=== PATIENT | male | born 1970 | race Hispanic/Latino ===

== ENCOUNTER 2019-11-10 13:55 | Emergency (ER) | payer BC ==
[2019-11-10 14:11] VITALS: BP 139/99
[2019-11-10] MEDS ORDERED: MORPHINE 4 MG/1 ML INJ IV ONE (15:02)
[2019-11-10] MEDS ORDERED: ONDANSETRON 4 MG/2 ML INJ IV ONE (15:02)
[2019-11-10] MEDS ORDERED: SODIUM CHLORIDE 0.9% 1000 ML 1,000 ML IV ONE (15:02)
[2019-11-10 15:18] LABS: Basophils # (Auto) 0.1 K/mm3 (0.0-0.1); Eosinophils # (Auto) 0.2 K/mm3 (0.0-0.4); Eosinophils % (Auto) 2.1 % (0.0-4.3); Hematocrit 38.6 % (35.5-45.6); Hemoglobin 13.4 gm/dl (11.8-15.2); Lymphocytes % (Auto) 27.7 % (13.4-35.0); Mean Corpuscular HGB Conc 35 % (32-34); Mean Corpuscular Volume 118 fl (84-94); Monocytes # (Auto) 0.6 K/mm3 (0.0-0.8); Monocytes % (Auto) 7.7 % (0.0-7.3); Platelet Count 382 K/mm3 (140-440); Red Blood Count 3.26 M/mm3 (3.65-5.03); Red Cell Distribution Width 16.1 % (13.2-15.2)
[2019-11-10 15:41] LABS: Alanine Aminotransferase 87 units/L (7-56); Albumin 3.8 g/dL (3.9-5); BUN/Creatinine Ratio 6; Blood Urea Nitrogen 5 mg/dL (9-20); Calcium 8.8 mg/dL (8.4-10.2); Hemolysis Index 52
--- NOTE | 2019-11-10 16:49 | Cat Scan Report ---
CT ABDOMEN AND PELVIS WITH CONTRAST INDICATION: abd pain w/ n/v CONTRAST: 100 cc Omnipaque 300 IV COMPARISON: None available. All CT scans at this location are performed using CT dose reduction for ALARA by means of automated e xposure control. FINDINGS: Lung bases are clear. No pneumoperitoneum is seen. No significant abdominal wall herniation is noted. Liver shows prominent fatty infiltration and is enlarged with a length of 19.5 cm. No foca l masses are obvious. Spleen appears within normal limits. Gallbladder is slightly distended but show s no wall thickening or obvious calculi. No biliary dilatation is seen. I see no abnormalities of the pancreas, adrenals, or right kidney. Left kidney shows a staghorn calculus in the lower pole measuri ng 16 mm in length but no obstructive changes are seen. Ureters and bladder show no significant abnor malities. Prostate shows calcifications but is not enlarged. No seminal vesicle abnormalities are see n. No lymphadenopathy is noted. No free fluid is seen. Atherosclerotic changes are noted. The left common iliac artery shows moderate atherosclerotic change . The left external iliac artery appears to show significant atherosclerotic change as well as mural thrombus. Flow is seen to the distal most portion of this artery then no obvious flow is identified u ntil the mid portion of the left common femoral artery which then is well opacified as are visualized portions of the deep and superficial femoral arteries on the left. There appear to be several small collaterals in the left inguinal area. Atherosclerotic changes are also seen in the right common maria alejandra c and external iliac arteries but flow is seen well distally. No evidence of bowel obstruction is noted. Appendix appears within normal limits. The right colon and distal most portions of the ileum appear to show mild wall edema. I do not see surrounding inflammat ion. No obvious bowel wall enhancement is identified. No other abnormalities seen in this area. IMPRESSION: 1. Findings in the right colon and distal ileum suggest colitis and distal ileitis but I do not see o bvious complication. Clinical correlation is suggested. 2. Apparent high degree stenosis or obstruction of the extreme distal left external iliac artery with collateral reconstitution and good flow seen distally. 3. Prominent fatty infiltration of the liver with mild hepatomegaly 4. Staghorn calculus in the left kidney without obstructive change seen Signer Name: Eric Loya MD Signed: 11/10/2019 4:45 PM Workstation Name: [id number]
[2019-11-10] MEDS ORDERED: PIPERACIL/TAZOBACTA 4.5/NS 100 4.5 GM/100 ML VIAL IV ONE (16:55)
--- NOTE | 2019-11-10 17:39 | Emergency Department Report ---
ED Abdominal Pain HPI - General Chief Complaint: Abdominal Pain Stated Complaint: STOMACH PAINS, COUGHING, WHEEZING Time Seen by Provider: 11/10/19 15:02 Source: patient Mode of arrival: Ambulatory Limitations: No Limitations - History of Present Illness Initial Comments: This is a 49-year-old male nontoxic, well nourished in appearance, no acute signs of distress presents to the ED with c/o of intermittent nausea and vomiting and abdominal pain 3 weeks. Patient describes vomiting as food content and yellow gastric acid. Patient describes abdominal pain as cramping and aching with level of 8/10 diffuse. Patient denies chest pain, short of robert ath, fever, hemoptysis, blood in stool, chills, headache, stiff neck, numbness or tingling. Patient denies any diarrhea or constipation. Denies any blood in stool. Patient denies any recent travels. Patient stated allergies to bupropion. HX of ETOH abuse but has not been drinking alcohol in 2 years. MD Complaint: abdominal pain -: week(s) (3) Location: diffuse Radiation: none Migration to: no migration Severity: mild Severity scale (0 -10): 3 Quality: cramping, aching Consistency: intermittent Improves With: nothing Worsens With: nothing Associated Symptoms: nausea, vomiting. denies: diarrhea, fever, chills, constipation, dysuria, hematemesis, hematochezia, melena, hematuria, anorexia, syncope - Related Data Previous Rx's Medication Instructions Recorded Last Taken Type Acetaminophen/Codeine [Tylenol 1 tab PO Q6H PRN #12 tab 11/10/19 Unknown Rx /Codeine # 3 tab] Ciprofloxacin HCl [Ciprofloxacin 500 mg PO Q12HR #14 tab 11/10/19 Unknown Rx TAB] Ondansetron [Zofran Odt] 4 mg PO Q8HR PRN #12 tab.rapdis 11/10/19 Unknown Rx metroNIDAZOLE [Flagyl] 500 mg PO Q12HR #14 tab 11/10/19 Unknown Rx Allergies Allergy/AdvReac Type Severity Reaction Status Date / Time bupropion [From Wellbutrin] Allergy Hives Verified 11/10/19 14:07 ED Review of Systems ROS: Stated complaint: STOMACH PAINS, COUGHING, WHEEZING Other details as noted in HPI Constitutional: denies: chills, fever Eyes: denies: eye pain, eye discharge, vision change ENT: denies: ear pain, throat pain Respiratory: denies: cough, shortness of breath, wheezing Cardiovascular: denies: chest pain, palpitations Endocrine: no symptoms reported Gastrointestinal: abdominal pain, nausea, vomiting. denies: diarrhea Genitourinary: denies: urgency, dysuria Musculoskeletal: denies: back pain, joint swelling, arthralgia Skin: denies: rash, lesions Neurological: denies: headache, weakness, paresthesias Psychiatric: denies: anxiety, depression Hematological/Lymphatic: denies: easy bleeding, easy bruising ED Past Medical Hx - Past Medical History Hx Hypertension: Yes Hx COPD: Yes - Surgical History Additional Surgical History: STENT IN KIDNEYS FOR KIDNEY STIONE - Social History Smoking Status: Current Every Day Smoker Substance Use Type: None - Medications Home Medications: Home Medications Medication Instructions Recorded Confirmed Last Taken Type Acetaminophen/Codeine [Tylenol 1 tab PO Q6H PRN #12 tab 11/10/19 Unknown Rx /Codeine # 3 tab] Ciprofloxacin HCl [Ciprofloxacin 500 mg PO Q12HR #14 tab 11/10/19 Unknown Rx TAB] Ondansetron [Zofran Odt] 4 mg PO Q8HR PRN #12 tab.rapdis 11/10/19 Unknown Rx metroNIDAZOLE [Flagyl] 500 mg PO Q12HR #14 tab 11/10/19 Unknown Rx ED Physical Exam - General Limitations: No Limitations General appearance: alert, in no apparent distress - Head Head exam: Present: atraumatic, normocephalic - Eye Eye exam: Present: normal appearance - Neck Neck exam: Present: normal inspection, full ROM. Absent: tenderness, meningismus, lymphadenopathy - Respiratory Respiratory exam: Present: normal lung sounds bilaterally. Absent: respiratory distress, wheezes, rales, rhonchi, stridor, chest wall tenderness, accessory muscle use, decreased breath sounds, prolonged expiratory - Cardiovascular Cardiovascular Exam: Present: regular rate, normal rhythm, normal heart sounds. Absent: irregular rhythm, systolic murmur, diastolic murmur, rubs, gallop - GI/Abdominal GI/Abdominal exam: Present: soft, tenderness (diffuse), normal bowel sounds. Absent: distended, guarding, rebound, rigid, diminished bowel sounds - Extremities Exam Extremities exam: Present: normal inspection, full ROM - Back Exam Back exam: Present: normal inspection, full ROM. Absent: tenderness, CVA tenderness (R), CVA tenderness (L), muscle spasm, paraspinal tenderness, vertebral tenderness, rash noted - Neurological Exam Neurological exam: Present: alert, oriented X3, normal gait - Psychiatric Psychiatric exam: Present: normal affect, normal mood - Skin Skin exam: Present: warm, dry, intact, normal color. Absent: rash ED Course Vital Signs 11/10/19 14:10 Temperature 97.9 F Pulse Rate 97 H Respiratory 20 Rate Blood Pressure 139/99 O2 Sat by Pulse 99 Oximetry - Reevaluation(s) Reevaluation #1: 11/10/19 17:38 Patient is speaking in full sentences with no signs of distress noted. - Consultations Consultation #1: 11/10/19 17:38 Patient has been consulted with Dr. Queen and Dr. Neff (phd internship) about patient history, physical exam, and labs/CT results and agrees for discharge with follow-up. ED Medical Decision Making - Lab Data Result diagrams: 11/10/19 15:06 11/10/19 15:06 - Medical Decision Making This is a 49-year-old male that presents with colitis and n/v. Patient is stabl e and was examined by me. There is no abdominal tenderness. Patient was consulted with Dr. Castro and phd internship. Negative signs of symptoms of appendicitis. Labs obtained. UA obtained. CT of abdomen obtained and dictated by the radiologist. Patient is notified of the report with no questions noted by the patient. Vital signs are stable prior to discharge. Patient received medical treatment in the ED which patient stated symptoms has resovled and subsided. Patient also received Zosyn IV in the ER. Was instructed note to operate any machinery due to possible drowsiness and stated someone will drive the patient home. A by mouth challenge has been obtained and patient tolerated well with no nausea vomiting. Patient was notified of strict precatuions of appendictis symptoms and to return to the ED if symptoms occurs as soon as possible. Patient was also instructed to Follow-up with a primary care doctor in 3-5 days or if symptoms worsen and continue return to emergency room as soon as possible. At time of discharge, the patient does not seem toxic or ill in appearance. No acute signs of distress noted. Patient agrees to discharge treatment plan of care. No further questions noted by the patient. Critical care attestation.: If time is entered above; I have spent that time in minutes in the direct care of this critically ill patient, excluding procedure time. ED Disposition Clinical Impression: Colitis, Ileitis Nausea & vomiting Qualifiers: Vomiting type: unspecified Vomiting Intractability: non-intractable Qualified Code(s): R11.2 - Nausea with vomiting, unspecified Disposition: -01 TO HOME OR SELFCARE Is pt being admited?: No Does the pt Need Aspirin: No Condition: Stable Instructions: Acute Nausea and Vomiting (ED), Infectious Colitis (ED) Additional Instructions: Follow-up with a phd internship doctor in 2 days or if symptoms worsen and continue return to emergency room as soon as possible. Prescriptions: Ciprofloxacin HCl [Ciprofloxacin TAB] 500 mg PO Q12HR #14 tab metroNIDAZOLE [Flagyl] 500 mg PO Q12HR #14 tab Acetaminophen/Codeine [Tylenol /Codeine # 3 tab] 1 tab PO Q6H PRN #12 tab PRN Reason: Pain , Severe (7-10) Ondansetron [Zofran Odt] 4 mg PO Q8HR PRN #12 tab.rapdis PRN Reason: Nausea Referrals: BUZZ KESSLER MD [Primary Care Provider] - 3-5 Days PRIMARY CARE, [Referring] - 3-5 Days NATHALIE NEFF MD [Staff Physician] - 11/11/19 Forms: Work/School Release Form(ED)
== END 2019-11-10 18:48 | disposition home or self-care (01) ==
LOC: ED 13:55
DX: K52.9 Noninfective gastroenteritis and colitis, unspecified (principal); R11.2 Nausea with vomiting, unspecified; I10 Essential (primary) hypertension; J44.9 Chronic obstructive pulmonary disease, unspecified; F17.200 Nicotine dependence, unspecified, uncomplicated; Z95.5 Presence of coronary angioplasty implant and graft; Z79.899 Other long term (current) drug therapy; Z88.8 Allergy status to other drugs, medicaments and biological substances
CPT/HCPCS: 36415; 74177; 80053; 83690; 85025; 96361; 96365; 96375; 99284; J2270; J2405; J2543; J7030; Q9967

== ENCOUNTER 2019-12-09 16:03 | Emergency (ER) | payer BC ==
[2019-12-09 17:15] LABS: Basophils % (Auto) 0.8 % (0.0-1.8); Eosinophils % (Auto) 0.7 % (0.0-4.3); Lymphocytes % (Auto) 21.9 % (13.4-35.0); Monocytes % (Auto) 7.1 % (0.0-7.3)
[2019-12-09] MEDS ORDERED: ONDANSETRON 4 MG/2 ML INJ IV ONE (17:21)
[2019-12-09] MEDS ORDERED: SODIUM CHLORIDE 0.9% 1000 ML 1,000 ML IV ONE (17:21)
[2019-12-09] MEDS ORDERED: MORPHINE 2 MG/1 ML INJ IV ONE (17:21)
--- NOTE | 2019-12-09 17:22 | Emergency Department Report ---
ED N/V/D HPI - General Chief complaint: Abdominal Pain Stated complaint: STOMACH PAIN, DIRRHEA Time Seen by Provider: 12/09/19 17:08 Source: patient Mode of arrival: Ambulatory Limitations: No Limitations - History of Present Illness Initial comments: 49-year-old male presents to the ER today complaining of abdominal pain and diarrhea. Patient states that his symptoms started 4 days ago. Patient states that his symptoms initially started of mild but has been getting worse. He states on average she has been having at least 10 episodes of diarrhea per day. He states that he has noticed mucousy yellow slimy discharge with the diarrhea. He reports intermittent nausea, as well as decreased appetite, and increased flatulence and burping. He denies any fever, chills or UTI symptoms or melena or hematochezia. Patient states that he had similar episode back in October. He was seen here and diagnosed with ileitis/colitis and was prescribed metronidazole and ciprofloxacin. Patient states that he did complete both antibiotics and he did have resolution of his symptoms but it started again 4 days ago. He denies any recent travel, he denies any recent bad food intake, he denies any ill contacts. He states that he did follow-up with Dr. Curry who recommended that he follows up with the GI specialist. He states that he has an appointment December 18 with GI but he states this is a phone consult. MD complaint: diarrhea, abdominal pain -: Sudden, days(s) (4) Description of Diarrhea: water, mucous Associated Abdominal Pain: Yes Location: diffuse Radiation: none Severity: moderate Worsens with: none Context: recent anitbiotic use Associated Symptoms: loss of appetite, nausea/vomiting - Related Data Previous Rx's Medication Instructions Recorded Last Taken Type Acetaminophen/Codeine [Tylenol 1 tab PO Q6H PRN #12 tab 12/09/19 Unknown Rx /Codeine # 3 tab] Ciprofloxacin HCl [Ciprofloxacin 500 mg PO Q12HR #14 tab 12/09/19 Unknown Rx TAB] Ondansetron [Zofran ODT TAB] 4 mg PO Q8HR PRN #12 tab.rapdis 12/09/19 Unknown Rx metroNIDAZOLE [Flagyl TAB] 500 mg PO Q12HR #14 tab 12/09/19 Unknown Rx Allergies Allergy/AdvReac Type Severity Reaction Status Date / Time bupropion [From Wellbutrin] Allergy Hives Verified 12/09/19 16:18 ED Review of Systems ROS: Stated complaint: STOMACH PAIN, DIRRHEA Other details as noted in HPI Comment: All other systems reviewed and negative Constitutional: denies: chills, fever Respiratory: denies: cough, shortness of breath, wheezing Cardiovascular: denies: chest pain, palpitations Gastrointestinal: abdominal pain, nausea, diarrhea. denies: hematemesis, melena, hematochezia Genitourinary: denies: urgency, dysuria Skin: denies: rash, lesions Neurological: denies: headache, weakness, paresthesias Psychiatric: denies: anxiety, depression Hematological/Lymphatic: denies: easy bleeding, easy bruising ED Past Medical Hx - Past Medical History Hx Hypertension: Yes Hx COPD: Yes Additional medical history: COLITIS - Surgical History Additional Surgical History: STENT IN KIDNEYS FOR KIDNEY STIONE - Social History Smoking Status: Current Every Day Smoker Substance Use Type: Alcohol - Medications Home Medications: Home Medications Medication Instructions Recorded Confirmed Last Taken Type Acetaminophen/Codeine [Tylenol 1 tab PO Q6H PRN #12 tab 12/09/19 Unknown Rx /Codeine # 3 tab] Ciprofloxacin HCl [Ciprofloxacin 500 mg PO Q12HR #14 tab 12/09/19 Unknown Rx TAB] Ondansetron [Zofran ODT TAB] 4 mg PO Q8HR PRN #12 tab.rapdis 12/09/19 Unknown Rx metroNIDAZOLE [Flagyl TAB] 500 mg PO Q12HR #14 tab 12/09/19 Unknown Rx ED Physical Exam - General Limitations: No Limitations General appearance: alert, in no apparent distress - ENT ENT exam: Present: normal exam, mucous membranes moist - Neck Neck exam: Present: normal inspection. Absent: meningismus - Respiratory Respiratory exam: Present: normal lung sounds bilaterally. Absent: respiratory distress - Cardiovascular Cardiovascular Exam: Present: regular rate, tachycardia - GI/Abdominal GI/Abdominal exam: Present: distended (Mild), tenderness (Diffuse but more so in the epigastric and right lower quadrant area with some mild guarding), rigid. Absent: rebound - Back Exam Back exam: Present: normal inspection - Neurological Exam Neurological exam: Present: alert, oriented X3, CN II-XII intact - Skin Skin exam: Present: intact ED Course Vital Signs 12/09/19 12/09/19 12/09/19 16:23 17:30 18:00 Temperature 98.6 F Pulse Rate 123 H Respiratory 20 20 20 Rate Blood Pressure 132/95 O2 Sat by Pulse 98 Oximetry ED Medical Decision Making - Lab Data Result diagrams: 12/09/19 16:34 12/09/19 16:34 - Radiology Data Radiology results: report reviewed - Medical Decision Making Patient came c/o abd pain and diarrhea x 4 days. Patient resting comfortably after IV pain meds, and IV fluids. Labs and CT abdomen and pelvis reviewed. Pt with elevated LFTs but no worse than previous visit. Patient does admit to hx of long time ETOH abuse in past. He states his PCP is monitoring his LFTs. Remainin g labs unremarkable. CT shows some inflammation, radiologist recommend correlating for inflammatory bowel disease. Patient is scheduled see GI on December 18 which I recommend he keeps. VS reviewed, his HR has improved after IV fluids, remaining VS nl. Patient is overall not toxic or ill appearing and currently no acute distress. Admission, nor emergent consult indicated at this time. Patient will be restarted on cipro, and flagyl. Discussed labs, ct, suspected dx and tx plan with patient. Patient expresses understanding of plan and agrees with discharge instructions. Critical care attestation.: If time is entered above; I have spent that time in minutes in the direct care of this critically ill patient, excluding procedure time. ED Disposition Clinical Impression: Colitis Disposition: - TO HOME OR SELFCARE Is pt being admited?: No Does the pt Need Aspirin: No Condition: Stable Instructions: Infectious Colitis (ED), Acute Diarrhea (ED) Prescriptions: Ciprofloxacin HCl [Ciprofloxacin TAB] 500 mg PO Q12HR #14 tab metroNIDAZOLE [Flagyl TAB] 500 mg PO Q12HR #14 tab Acetaminophen/Codeine [Tylenol /Codeine # 3 tab] 1 tab PO Q6H PRN #12 tab PRN Reason: Pain , Severe (7-10) Ondansetron [Zofran ODT TAB] 4 mg PO Q8HR PRN #12 tab.rapdis PRN Reason: Nausea Referrals: [facility] [Provider Group] - 3-5 Days Time of Disposition: 19:59
[2019-12-09 17:23] LABS: Eosinophils # (Auto) 0.1 K/mm3 (0.0-0.4); Hematocrit 44.9 % (35.5-45.6); Hemoglobin 15.5 gm/dl (11.8-15.2); Lymphocytes # (Auto) 1.7 K/mm3 (1.2-5.4); Mean Corpuscular HGB Conc 35 % (32-34); Mean Corpuscular Volume 118 fl (84-94); Monocytes # (Auto) 0.6 K/mm3 (0.0-0.8); Platelet Count 281 K/mm3 (140-440); Red Blood Count 3.79 M/mm3 (3.65-5.03); Red Cell Distribution Width 14.4 % (13.2-15.2)
[2019-12-09 17:32] LABS: Alanine Aminotransferase 73 units/L (7-56); Albumin 4.1 g/dL (3.9-5); BUN/Creatinine Ratio 9; Blood Urea Nitrogen 8 mg/dL (9-20); Calcium 8.7 mg/dL (8.4-10.2); Hemolysis Index 9
[2019-12-09 19:03] LABS: Bacteria,Urine 1+ /HPF (Negative); Bilirubin,Urine NEG (Negative); Blood,Urine NEG (Negative); Color,Urine Yellow (Yellow); Mucus,Urine FEW /HPF; Protein,Urine <15 mg/dL mg/dL (Negative); Urobilinogen,Urine < 2.0 mg/dL (<2.0)
[2019-12-09 20:29] VITALS: BP 143/92
== END 2019-12-09 20:29 | disposition home or self-care (01) ==
LOC: ED 16:03
DX: K52.9 Noninfective gastroenteritis and colitis, unspecified (principal); R11.2 Nausea with vomiting, unspecified; I10 Essential (primary) hypertension; J44.9 Chronic obstructive pulmonary disease, unspecified; F17.200 Nicotine dependence, unspecified, uncomplicated; Z98.890 Other specified postprocedural states; Z79.2 Long term (current) use of antibiotics; Z79.899 Other long term (current) drug therapy; Z88.8 Allergy status to other drugs, medicaments and biological substances
CPT/HCPCS: 36415; 74177; 80053; 81001; 83690; 83735; 85025; 96361; 96374; 96375; 99284; J2270; J2405; J7030; Q9967

== ENCOUNTER 2020-03-06 12:12 | Emergency (ER) | payer BC ==
[2020-03-06] MEDS ORDERED: ONDANSETRON 4 MG/2 ML INJ IV ONE (13:16)
[2020-03-06] MEDS ORDERED: SODIUM CHLORIDE 0.9% 1000 ML 1,000 ML IV ONE (13:16)
[2020-03-06] MEDS ORDERED: MORPHINE 2 MG/1 ML INJ IV ONE (13:16)
[2020-03-06 14:56] LABS: Basophils % (Auto) 0.4 % (0.0-1.8); Eosinophils # (Auto) 0.1 K/mm3 (0.0-0.4); Eosinophils % (Auto) 0.6 % (0.0-4.3); Hematocrit 41.8 % (35.5-45.6); Hemoglobin 14.2 gm/dl (11.8-15.2); Lymphocytes # (Auto) 1.1 K/mm3 (1.2-5.4); Lymphocytes % (Auto) 12.4 % (13.4-35.0); Mean Corpuscular HGB Conc 34 % (32-34); Mean Corpuscular Volume 109 fl (84-94); Monocytes # (Auto) 0.6 K/mm3 (0.0-0.8); Monocytes % (Auto) 6.1 % (0.0-7.3); Platelet Count 204 K/mm3 (140-440); Red Blood Count 3.85 M/mm3 (3.65-5.03); Red Cell Distribution Width 16.7 % (13.2-15.2)
[2020-03-06 14:58] LABS: BUN/Creatinine Ratio 19; Blood Urea Nitrogen 15 mg/dL (9-20); Calcium 9.4 mg/dL (8.4-10.2); Hemolysis Index 5
[2020-03-06 15:02] LABS: Albumin 4.1 g/dL (3.9-5); Bilirubin,Direct 0.3 mg/dL (0-0.2)
[2020-03-06 15:45] VITALS: BP 145/103
--- NOTE | 2020-03-06 15:57 | Emergency Department Report ---
ED Abdominal Pain HPI - General Chief Complaint: Abdominal Pain Stated Complaint: GENERAL WEAKNESS Time Seen by Provider: 03/06/20 13:15 Source: patient, EMS Mode of arrival: Stretcher Limitations: No Limitations - History of Present Illness Initial Comments: 49-year-old male with history of chronic pancreatitis, esophagitis, colitis, hypertension, presents to ED with abdominal pain. Patient reports epigastric pain, that is essentially chronic, became worse today. He also reports feeling shaky. Patient has history of alcohol abuse, but states he stopped drinking, last drink was 2 weeks ago. Patient reports associated nausea, no vomiting. He reports chronic diarrhea. MD Complaint: abdominal pain -: This afternoon Location: epigastric Radiation: none Migration to: no migration Severity: moderate Severity scale (0 -10): 9 Quality: aching Consistency: constant Improves With: nothing Worsens With: nothing Associated Symptoms: nausea, diarrhea. denies: vomiting, fever - Related Data Home Medications Medication Instructions Recorded Confirmed Last Taken Losartan [Cozaar] 50 mg PO QDAY 02/24/20 02/24/20 02/23/20 17:00 Previous Rx's Medication Instructions Recorded Last Taken Type Acetaminophen/Codeine [Tylenol 1 tab PO Q6H PRN #12 tab 12/09/19 Unknown Rx /Codeine # 3 tab] Ciprofloxacin HCl [Ciprofloxacin 500 mg PO Q12HR #14 tab 12/09/19 Unknown Rx TAB] Ondansetron [Zofran ODT TAB] 4 mg PO Q8HR PRN #12 tab.rapdis 12/09/19 02/23/20 08:00 Rx metroNIDAZOLE [Flagyl TAB] 500 mg PO Q12HR #14 tab 12/09/19 Unknown Rx Dicyclomine [Bentyl] 10 mg PO QID 20 Days #40 capsule 01/27/20 Unknown Rx Lipase/Protease/Amylase [Zenpep Dr 1 each PO TID 30 Days #90 02/24/20 Unknown Rx 40,000 Units Capsule] capsule. Pantoprazole [Protonix] 40 mg PO QDAY 30 Days #30 tablet 02/24/20 Unknown Rx Ondansetron [Zofran Odt] 4 mg PO Q8HR PRN #20 tab.rapdis 03/06/20 Unknown Rx Ondansetron [Zofran Odt] 4 mg PO Q8HR PRN #20 tab.rapdis 03/06/20 Unknown Rx Allergies Allergy/AdvReac Type Severity Reaction Status Date / Time bupropion [From Wellbutrin] Allergy Hives Verified 12/09/19 16:18 ED Review of Systems ROS: Stated complaint: GENERAL WEAKNESS Other details as noted in HPI Comment: All other systems reviewed and negative Constitutional: denies: chills, fever Gastrointestinal: abdominal pain, nausea, diarrhea. denies: vomiting ED Past Medical Hx - Past Medical History Previous Medical History?: Yes Hx Hypertension: Yes Hx Heart Attack/AMI: No Hx Renal Disease: No Hx COPD: Yes Additional medical history: COLITIS - Surgical History Past Surgical History?: Yes Additional Surgical History: STENT IN KIDNEYS FOR KIDNEY STIONE - Social History Smoking Status: Current Every Day Smoker Substance Use Type: Alcohol - Medications Home Medications: Home Medications Medication Instructions Recorded Confirmed Last Taken Type Acetaminophen/Codeine [Tylenol 1 tab PO Q6H PRN #12 tab 12/09/19 Unknown Rx /Codeine # 3 tab] Ciprofloxacin HCl [Ciprofloxacin 500 mg PO Q12HR #14 tab 12/09/19 Unknown Rx TAB] Ondansetron [Zofran ODT TAB] 4 mg PO Q8HR PRN #12 tab.rapdis 12/09/19 02/23/20 08:00 Rx metroNIDAZOLE [Flagyl TAB] 500 mg PO Q12HR #14 tab 12/09/19 Unknown Rx Dicyclomine [Bentyl] 10 mg PO QID 20 Days #40 capsule 01/27/20 Unknown Rx Lipase/Protease/Amylase [Zenpep Dr 1 each PO TID 30 Days #90 02/24/20 Unknown Rx 40,000 Units Capsule] capsule. Losartan [Cozaar] 50 mg PO QDAY 02/24/20 02/24/20 02/23/20 17:00 History Pantoprazole [Protonix] 40 mg PO QDAY 30 Days #30 tablet 02/24/20 Unknown Rx Ondansetron [Zofran Odt] 4 mg PO Q8HR PRN #20 tab.rapdis 03/06/20 Unknown Rx Ondansetron [Zofran Odt] 4 mg PO Q8HR PRN #20 tab.rapdis 03/06/20 Unknown Rx ED Physical Exam - General Limitations: No Limitations General appearance: alert, in no apparent distress - Head Head exam: Present: atraumatic, normocephalic - Eye Eye exam: Present: normal appearance, EOMI - ENT ENT exam: Present: mucous membranes moist - Neck Neck exam: Present: normal inspection - Respiratory Respiratory exam: Present: normal lung sounds bilaterally. Absent: respiratory distress - Cardiovascular Cardiovascular Exam: Present: normal rhythm, tachycardia - GI/Abdominal GI/Abdominal exam: Present: soft, tenderness (epigastric). Absent: distended - Extremities Exam Extremities exam: Present: normal inspection - Neurological Exam Neurological exam: Present: alert, oriented X3, other (no tremors present on exam) - Psychiatric Psychiatric exam: Present: normal affect, normal mood - Skin Skin exam: Present: warm, dry, intact, normal color ED Course Vital Signs 03/06/20 03/06/20 03/06/20 12:34 12:45 12:51 Temperature 97.8 F Pulse Rate 127 H 114 H 125 H Respiratory 18 20 18 Rate Blood Pressure 138/92 138/92 O2 Sat by Pulse 100 Oximetry 03/06/20 03/06/20 03/06/20 13:00 13:16 13:30 Temperature Pulse Rate 118 H 112 H 114 H Respiratory 19 19 13 Rate Blood Pressure 138/92 132/94 135/97 O2 Sat by Pulse Oximetry 03/06/20 03/06/20 03/06/20 13:45 14:00 14:15 Temperature Pulse Rate 109 H 115 H 96 H Respiratory 18 18 13 Rate Blood Pressure 146/94 146/94 163/107 O2 Sat by Pulse Oximetry 03/06/20 03/06/20 03/06/20 14:30 14:46 15:00 Temperature Pulse Rate 99 H 99 H 76 Respiratory 14 14 14 Rate Blood Pressure 163/107 165/99 152/95 O2 Sat by Pulse Oximetry 03/06/20 03/06/20 15:16 15:30 Temperature Pulse Rate 94 H 83 Respiratory 19 14 Rate Blood Pressure 158/100 145/103 O2 Sat by Pulse Oximetry - Reevaluation(s) Reevaluation #1: 03/06/20 16:03 Pt states he is feeling much better at this time following medications. HR is now normal. Feels comfortable w/ discharge home. States he has home medications that he can take. Does not need any additional meds. ED Medical Decision Making - Lab Data Result diagrams: 03/06/20 13:35 03/06/20 13:35 - EKG Data -: EKG Interpreted by Me EKG shows normal: sinus rhythm, axis, intervals, QRS complexes, ST-T waves Rate: tachycardia - EKG Data Interpretation: no acute changes (rate 117) - Medical Decision Making Patient feeling much better at this time. Labs are unremarkable. Pt not in alcohol withdrawal. Last drink 2 weeks ago. Not hypertensive. Vital signs mckenzie ve improved from initial presentation, with resolution of tachycardia. Patient advised to follow-up with his fagot heater. Return precautions given. Critical care attestation.: If time is entered above; I have spent that time in minutes in the direct care of this critically ill patient, excluding procedure time. ED Disposition Clinical Impression: Abdominal pain Disposition: DC- TO HOME OR SELFCARE Is pt being admited?: No Condition: Stable Instructions: Abdominal Pain (ED) Prescriptions: Ondansetron [Zofran Odt] 4 mg PO Q8HR PRN #20 tab.rapdis PRN Reason: Vomiting Ondansetron [Zofran Odt] 4 mg PO Q8HR PRN #20 tab.rapdis PRN Reason: Vomiting Referrals: SHELLY BARNES MD [Primary Care Provider] - 3-5 Days Time of Disposition: 16:05
== END 2020-03-06 16:09 | disposition home or self-care (01) ==
LOC: ED 12:12
DX: R10.13 Epigastric pain (principal); I10 Essential (primary) hypertension; J44.9 Chronic obstructive pulmonary disease, unspecified; F17.200 Nicotine dependence, unspecified, uncomplicated; Z98.890 Other specified postprocedural states; Z79.2 Long term (current) use of antibiotics; Z79.899 Other long term (current) drug therapy; Z88.8 Allergy status to other drugs, medicaments and biological substances
CPT/HCPCS: 36415; 80048; 80076; 83690; 85025; 93005; 96361; 96374; 96375; 99283; J2270; J2405; J7030

== ENCOUNTER 2020-03-22 08:22 | Outpatient (CLI) | payer BC ==
[2020-03-22 09:25] LABS: Blood Urea Nitrogen 9 mg/dL (9-20)
--- NOTE | 2020-03-22 10:07 | Cat Scan Report ---
CT abdomen pelvis w con INDICATION: Abdominal pain, chronic pancreatitis. TECHNIQUE: All CT scans at this location are performed using the following dose modulation technique: Automated exposure control. Helical slices were obtained through the abdomen and pelvis. 100 cc of Omnipaque 30 0 is administered. COMPARISON: CT scan dated 12/09/2019 FINDINGS: Abdomen: No acute abnormality is seen in the lower chest. There is mild fatty infiltration of the flavia er. The spleen, pancreas, adrenal glands, and kidneys show no acute abnormality. Left nephrolithiasis is unchanged. There is no CT evidence of pancreatitis. Bowel is unchanged in appearance. There is no obstruction, inflammation, or free air. Pelvis: There is sigmoid diverticulosis. There is no CT evidence of diverticulitis. There is no struc tural free air. Prostatic calcifications are noted. The appendix is unremarkable. On review of bone windows, no acute osseous abnormalities are seen. IMPRESSION: 1. There is no obstruction, inflammation, or free air. 2. There has been no significant interval change. 3. Nonobstructing left renal calculus appears unchanged. Signer Name: Dontrell Chauhan MD Signed: 03/22/2020 10:03 AM Workstation Name: [id number]
== END 2020-03-22 08:23 | disposition home or self-care (01) ==
LOC: CT 08:22
DX: N20.0 Calculus of kidney (principal); K57.30 Diverticulosis of large intestine without perforation or abscess without bleeding
CPT/HCPCS: 36415; 74177; 82565; 84520; Q9967

== ENCOUNTER 2020-10-24 08:53 | Outpatient (CLI) | payer BC ==
--- NOTE | 2020-10-24 14:33 | Ultrasound Report ---
LIMITED RUQ ABDOMINAL ULTRASOUND INDICATION: RIGHT UPPER QUADRANT PAIN. COMPARISON: CT abdomen/pelvis from 03/22/2020. FINDINGS: Pancreas: Visualized portions show no significant abnormality. Abdominal Aorta: Normal size. IVC: No significant abnormality. Liver: The liver measures 14.8 cm in length. Diffusely echogenic parenchyma. Normal hepatopedal bloo d flow in the main portal vein. Gallbladder: No significant abnormality. Bile ducts: No significant abnormality. Common bile duct measures 5 mm. Right kidney: No significant abnormality visualized.. Free fluid: None. Additional Findings: None. IMPRESSION: 1. Diffusely echogenic appearance of the liver, most commonly seen with steatosis. Signer Name: Jose Carlos Nava MD Signed: 10/24/2020 2:28 PM Workstation Name: [id number]
== END 2020-10-24 08:54 | disposition home or self-care (01) ==
LOC: US 08:53
PROVIDERS: ATTEND Internal Medicine
DX: K76.0 Fatty (change of) liver, not elsewhere classified (principal)
CPT/HCPCS: 76700; 76705

== ENCOUNTER 2020-11-08 09:28 | Outpatient (CLI) | payer BC ==
[2020-11-08 10:21] LABS: Blood Urea Nitrogen 6 mg/dL (9-20)
--- NOTE | 2020-11-08 11:24 | Cat Scan Report ---
CT ABDOMEN AND PELVIS WITH CONTRAST INDICATION / CLINICAL INFORMATION: Abdominal pain, concern for pancreatitis. TECHNIQUE: Axial CT images were obtained through the abdomen and pelvis after IV contrast. All CT sc ans at this location are performed using CT dose reduction for ALARA by means of automated exposure c ontrol. COMPARISON: Ultrasound from 10/24/2020. CT from 03/22/2020. FINDINGS: LOWER CHEST: No significant abnormality LIVER: Hepatic steatosis GALLBLADDER/BILIARY TREE: No significant abnormality PANCREAS: No significant abnormality. No peripancreatic inflammatory stranding. Pancreas enhances jocelyn ogeneously. No peripancreatic organized collection. SPLEEN: No significant abnormality ADRENALS: No significant abnormality KIDNEYS / URETER: 8 mm nonobstructive left renal calculus. Kidneys enhance symmetrically. No urolithi asis or hydronephrosis. URINARY BLADDER: Bladder is partially decompressed, though grossly unremarkable. REPRODUCTIVE ORGANS: No significant abnormality STOMACH / SMALL BOWEL: Stomach and small bowel are normal in caliber. No evidence of bowel inflammati on. COLON: Colonic diverticulosis without evidence of diverticulitis. The appendix is normal in caliber. LYMPH NODES: No significant adenopathy. VASCULATURE: No significant abnormality. OTHER: No free air, free fluid, or focal fluid collection is identified. SKELETAL SYSTEM: Mild scattered degenerative changes of the spine. No acute osseous findings. IMPRESSION: 1. No acute abnormality of the abdomen or pelvis. No evidence of pancreatitis. 2. Left nephrolithiasis. No urolithiasis or hydronephrosis. 3. Other stable chronic, incidental findings as above. Signer Name: Greg Villaseñor MD Signed: 11/08/2020 11:20 AM Workstation Name: [id number]
== END 2020-11-08 09:29 | disposition home or self-care (01) ==
LOC: CT 09:28
PROVIDERS: ATTEND Internal Medicine
DX: N28.1 Cyst of kidney, acquired (principal); K86.1 Other chronic pancreatitis; K76.0 Fatty (change of) liver, not elsewhere classified; K57.30 Diverticulosis of large intestine without perforation or abscess without bleeding; M47.819 Spondylosis without myelopathy or radiculopathy, site unspecified
CPT/HCPCS: 36415; 74177; 82565; 84520; Q9967

== ENCOUNTER 2022-01-23 15:25 | Emergency (ER) | payer SELFPAY ==
[2022-01-23] MEDS ORDERED: KETOROLAC 10 MG TAB PO ONE (15:36)
[2022-01-23] MEDS ORDERED: oxyCODONE /ACETAMINOPHEN 5-325MG TAB PO ONE (15:36)
[2022-01-23 15:37] VITALS: BP 106/79
--- NOTE | 2022-01-23 15:43 | Emergency Department Report ---
ED Recheck HPI - General Chief Complaint: Extremity Injury, Upper Stated Complaint: LT ARM PAIN/LEG PAIN Time Seen by Provider: 01/23/22 15:36 Source: patient Mode of arrival: Ambulatory Limitations: No Limitations - History of Present Illness Initial Comments: 51-year-old white male presents to the emergency department requesting medication refill. He states that about a week ago he had surgery for fractured elbow and has since ran out of pain medicine. He states that he still has severe pain persistently and is here requesting pain medication and refill to take because he is not scheduled to see his orthopedic surgeon again until January 01. He denies any other complaints. MD Complaint: medication refill request Returns Today for: request for prescription Symptoms Since Prior Visit: worsening pain Context: ran out of medication Associated Symptoms: other (Left arm pain) - Related Data Home Medications Medication Instructions Recorded Confirmed Last Taken Losartan [Cozaar] 50 mg PO QDAY 02/24/20 02/24/20 02/23/20 17:00 Previous Rx's Medication Instructions Recorded Last Taken Type Acetaminophen/Codeine [Tylenol 1 tab PO Q6H PRN #12 tab 12/09/19 Unknown Rx /Codeine # 3 tab] Ciprofloxacin HCl [Ciprofloxacin 500 mg PO Q12HR #14 tab 12/09/19 Unknown Rx TAB] Ondansetron [Zofran ODT TAB] 4 mg PO Q8HR PRN #12 tab.rapdis 12/09/19 02/23/20 08:00 Rx metroNIDAZOLE [Flagyl TAB] 500 mg PO Q12HR #14 tab 12/09/19 Unknown Rx Dicyclomine [Bentyl] 10 mg PO QID 20 Days #40 capsule 01/27/20 Unknown Rx Lipase/Protease/Amylase [Zenpep Dr 1 each PO TID 30 Days #90 02/24/20 Unknown Rx 40,000 Units Capsule] capsule. Pantoprazole [Protonix] 40 mg PO QDAY 30 Days #30 tablet 02/24/20 Unknown Rx Ondansetron [Zofran Odt] 4 mg PO Q8HR PRN #20 tab.rapdis 03/06/20 Unknown Rx Ondansetron [Zofran Odt] 4 mg PO Q8HR PRN #20 tab.rapdis 03/06/20 Unknown Rx Acetaminophen/Codeine [Tylenol 1 tab PO Q6H PRN #12 tab 01/23/22 Unknown Rx /Codeine # 3 tab] Ketorolac [Toradol] 10 mg PO Q6H PRN #12 tab 01/23/22 Unknown Rx Allergies Allergy/AdvReac Type Severity Reaction Status Date / Time bupropion [From Wellbutrin] Allergy Hives Verified 12/09/19 16:18 ED Review of Systems ROS: Stated complaint: LT ARM PAIN/LEG PAIN Other details as noted in HPI Comment: All other systems reviewed and negative Constitutional: denies: chills, fever Respiratory: denies: shortness of breath Cardiovascular: denies: chest pain, palpitations Neurological: denies: headache ED Past Medical Hx - Past Medical History Hx Hypertension: Yes Hx Heart Attack/AMI: No Hx Renal Disease: No Hx COPD: Yes Additional medical history: COLITIS - Surgical History Additional Surgical History: STENT IN KIDNEYS FOR KIDNEY STIONE - Social History Smoking Status: Current Every Day Smoker Substance Use Type: Alcohol - Medications Home Medications: Home Medications Medication Instructions Recorded Confirmed Last Taken Type Acetaminophen/Codeine [Tylenol 1 tab PO Q6H PRN #12 tab 12/09/19 Unknown Rx /Codeine # 3 tab] Ciprofloxacin HCl [Ciprofloxacin 500 mg PO Q12HR #14 tab 12/09/19 Unknown Rx TAB] Ondansetron [Zofran ODT TAB] 4 mg PO Q8HR PRN #12 tab.rapdis 12/09/19 02/23/20 08:00 Rx metroNIDAZOLE [Flagyl TAB] 500 mg PO Q12HR #14 tab 12/09/19 Unknown Rx Dicyclomine [Bentyl] 10 mg PO QID 20 Days #40 capsule 01/27/20 Unknown Rx Lipase/Protease/Amylase [Zenpep Dr 1 each PO TID 30 Days #90 02/24/20 Unknown Rx 40,000 Units Capsule] capsule. Losartan [Cozaar] 50 mg PO QDAY 02/24/20 02/24/20 02/23/20 17:00 History Pantoprazole [Protonix] 40 mg PO QDAY 30 Days #30 tablet 02/24/20 Unknown Rx Ondansetron [Zofran Odt] 4 mg PO Q8HR PRN #20 tab.rapdis 03/06/20 Unknown Rx Ondansetron [Zofran Odt] 4 mg PO Q8HR PRN #20 tab.rapdis 03/06/20 Unknown Rx Acetaminophen/Codeine [Tylenol 1 tab PO Q6H PRN #12 tab 01/23/22 Unknown Rx /Codeine # 3 tab] Ketorolac [Toradol] 10 mg PO Q6H PRN #12 tab 01/23/22 Unknown Rx ED Physical Exam - General Limitations: No Limitations General appearance: alert, in no apparent distress - Head Head exam: Present: atraumatic, normocephalic - Eye Eye exam: Present: normal appearance. Absent: conjunctival injection - Respiratory Respiratory exam: Absent: respiratory distress - Cardiovascular Cardiovascular Exam: Present: regular rate - GI/Abdominal GI/Abdominal exam: Absent: distended - Extremities Exam Extremities exam: Absent: normal inspection (Cast and sling intact to left arm) - Back Exam Back exam: Present: normal inspection - Neurological Exam Neurological exam: Present: alert, oriented X3 - Psychiatric Psychiatric exam: Present: normal affect, normal mood - Skin Skin exam: Present: warm, dry, intact, normal color ED Course Vital Signs 01/23/22 15:34 Temperature 98.6 F Pulse Rate 90 Respiratory 16 Rate Blood Pressure 106/79 [Left] O2 Sat by Pulse 97 Oximetry ED Recheck MDM - Differential Diagnosis Prescription Refill(s) - Medical Decision Making 51-year-old white male presents to the emergency department requesting medication refill. He states that about a week ago he had surgery for fractured elbow and has since ran out of pain medicine. He states that he still has severe pain persistently and is here requesting pain medication and refill to take because he is not scheduled to see his orthopedic surgeon again until January 01. He denies any other complaints. Physical exam unremarkable. Patient will be given considering Toradol in the emergency department and discharged home with Toradol and Tylenol 3 to use as needed. He is advised to follow-up with orthopedics as planned and return to the emergency department as needed. He verbalizes understanding of and agreement with plan of care. Critical care attestation.: If time is entered above; I have spent that time in minutes in the direct care of this critically ill patient, excluding procedure time. ED Disposition Clinical Impression: Prescription refill Disposition: HOME / SELF CARE / HOMELESS Is pt being admited?: No Does the pt Need Aspirin: No Condition: Stable Instructions: Pain Medicine Instructions, [id number] Additional Instructions: Take medications as prescribed. Follow-up with orthopedics as planned. Return to the emergency department as needed. Prescriptions: Ketorolac [Toradol] 10 mg PO Q6H PRN #12 tab PRN Reason: Pain Acetaminophen/Codeine [Tylenol /Codeine # 3 tab] 1 tab PO Q6H PRN #12 tab PRN Reason: Pain , Severe (7-10) Referrals: Lakeisha YUAN MD [Staff Physician] - 3-5 Days DARYL RAMOS MD [Staff Physician] - 3-5 Days Time of Disposition: 15:49
== END 2022-01-23 16:15 | disposition home or self-care (01) ==
LOC: ED 15:25
DX: M79.602 Pain in left arm (principal); Z76.0 Encounter for issue of repeat prescription; I10 Essential (primary) hypertension; Z88.8 Allergy status to other drugs, medicaments and biological substances
CPT/HCPCS: 99282